=== PATIENT | male | born 1945 | race Caucasian/White ===

== ENCOUNTER 2021-03-17 09:11 | Emergency (ER) | payer MEDICARE, OTHER ==
[2021-03-17] MEDS ORDERED: fentaNYL 100 MCG/2 ML SDV IVPUSH ONE (09:33)
--- NOTE | 2021-03-17 10:11 | CR ---
CHEST: Portable 03/17/2021 at 9:51 AM CLINICAL HISTORY:Chest pain COMPARISON:None FINDINGS: Heart size is mildly enlarged. Pulmonary vascularity is normal. No infiltrate or effusion is seen. Patient has a permanent cardiac pacer. There are atherosclerotic changes in the aorta. Impression: Mild cardiomegaly Permanent cardiac pacer No acute cardiopulmonary process.
--- NOTE | 2021-03-17 10:13 | EDM.PDOC ---
ED HPI GENERAL MEDICAL PROBLEM - General Chief Complaint: Chest Pain Stated Complaint: POSSIBLE HEARTACHE Time Seen by Provider: 03/17/21 09:33 Source of Information: Reports: Patient History Limitations: Reports: No Limitations - History of Present Illness INITIAL COMMENTS - FREE TEXT/NARRATIVE: Refugio is a 75-year-old male presenting to the ED for evaluation of acute onset of chest pain that started around 5 AM this morning. The patient has a history of ventricular bigeminy and has an upcoming appointment with roll slicing machine tender to do an ablation at [facility] in [place]. He has an implantable pacemaker. He has a history for coronary disease status post stent placement, carotid vascular disease status post endarterectomy, and circular bigeminy status post pacemaker and upcoming ablation, obstructive sleep apnea uses a CPAP at night, hypertension, and status post arthroplasty of the knee. [place] but normally receives his health care in [place]. He has never been here before nor do we have records of him accessible. Chest Pain Score (Numeric/FACES): 8 - Related Data Allergies Allergy/AdvReac Type Severity Reaction Status Date / Time No Known Allergies Allergy Verified 03/17/21 09:29 Home Meds: Home Meds Apixaban [Eliquis] 5 mg PO BID 03/17/21 [History] Clopidogrel [Plavix] 75 mg PO DAILY 03/17/21 [History] DULoxetine [Cymbalta] 60 mg PO DAILY 03/17/21 [History] Dextroamphetamine/Amphetamine [Adderall] 15 mg PO BID 03/17/21 [History] Metoprolol Tartrate [Lopressor] 50 mg PO BID 03/17/21 [History] Nitroglycerin 0.4 mg SL ASDIRECTED PRN 03/17/21 [History] amLODIPine [Norvasc] 10 mg PO DAILY 03/17/21 [History] cloNIDine [Catapres] 0.2 mg PO BID 03/17/21 [History] Past Medical History HEENT History: Reports: Cataract Cardiovascular History: Reports: High Cholesterol, Hypertension, [place], Pacemaker, Other (See Below) Other Cardiovascular History: Freq PVC's Respiratory History: Reports: Sleep Apnea Other Respiratory History: c-pap Gastrointestinal History: Reports: Diverticulosis Genitourinary History: Reports: None Neurological History: Reports: None Psychiatric History: Reports: Depression, Suicidal Ideation Endocrine/Metabolic History: Reports: None Hematologic History: Reports: None Immunologic History: Reports: None Oncologic (Cancer) History: Reports: None Dermatologic History: Reports: None - Infectious Disease History Infectious Disease History: Reports: Chicken Pox, Measles, Mumps - Past Surgical History HEENT Surgical History: Reports: Cataract Surgery, Other (See Below) Other HEENT Surgeries/Procedures: nasal polyp Cardiovascular Surgical History: Reports: Carotid Endarterectomy, Coronary Artery Stent, Pacer GI Surgical History: Reports: Colonoscopy Musculoskeletal Surgical History: Reports: Knee Replacement Social & Family History - Tobacco Use Tobacco Use Status *Q: Former Tobacco User Used Tobacco, but Quit: Yes Month/Year Tobacco Last Used: 43 years - Caffeine Use Caffeine Use: Reports: Coffee Caffeine Use Comment: - Recreational Drug Use Recreational Drug Use: No ED ROS GENERAL - Review of Systems Review Of Systems: See Below Constitutional: Denies: Fever, Chills HEENT: Reports: No Symptoms Respiratory: Reports: Shortness of Breath. Denies: Cough Cardiovascular: Reports: Chest Pain (Central chest pain that worsens with i nspiration.), Palpitations (Patient is in ventricular bigeminy and occasionally has short runs of ventricular tachycardia.) Endocrine: Reports: No Symptoms GI/Abdominal: Reports: No Symptoms : Reports: No Symptoms Musculoskeletal: Reports: Back Pain Skin: Reports: No Symptoms Neurological: Reports: No Symptoms Psychiatric: Reports: Anxiety Hematologic/Lymphatic: Reports: No Symptoms Immunologic: Reports: No Symptoms ED EXAM, GENERAL - Physical Exam Exam: See Below Exam Limited By: No Limitations General Appearance: Alert, Anxious, Mild Distress Eye Exam: Bilateral Eye: EOMI, PERRL Throat/Mouth: Normal Inspection, Normal Oropharynx, Normal Voice, No Airway Compromise Head: Atraumatic, Normocephalic Neck: Normal Inspection, Supple, Non-Tender, Full Range of Motion. No: Lymphadenopathy (R), Lymphadenopathy (L) Respiratory/Chest: No Respiratory Distress, Lungs Clear, Normal Breath Sounds. No: Crackles, Rales, Rhonchi, Wheezing Cardiovascular: Normal Peripheral Pulses, No Murmur, Extra Beats Peripheral Pulses: 2+: Radial (L), Radial (R), Posterior Tibial (L), Posterior Tibial (R) GI/Abdominal: Normal Bowel Sounds, Soft, Non-Tender Back Exam: Normal Inspection, Full Range of Motion Extremities: Normal Inspection, Normal Range of Motion Neurological: Alert, Oriented, Normal Cognition, No Motor/Sensory Deficits Psychiatric: Normal Affect, Anxious Skin Exam: Warm, Dry, Intact, Normal Color Lymphatic: No Adenopathy #1 Interpretation EKG Date: 03/17/21 Time: 09:12 Rhythm: NSR (Normal sinus rhythm with ventricular bigeminy. There is a short polymorphic 4 beat run of V. tach.) [place]: LAD-Left [place] Deviation P-Wave: Present QRS: Normal ST-T: Other (Nonspecific ST-T changes) QT: Prolonged (QTC is 516 ms) Comparison: NA - No Prior EKG Course - Vital Signs Last Recorded V/S: Last Vital Signs Temp 36.1 C 03/17/21 09:21 Pulse 60 03/17/21 13:06 Resp 19 03/17/21 13:06 BP 118/82 03/17/21 13:06 Pulse Ox 96 03/17/21 13:06 - Orders/Labs/Meds Orders: Active Orders 24 hr Category Date Time Status Iopamidol [Isovue-370 (76%)] Med 03/17/21 11:30 Active 85 ml IV . DIRECTED Magnesium Sulfate/Water [Magnesium Sulfate in Water 2 Med 03/17/21 12:50 Active GM/50 ML] 2 gm Premix Bag 1 bag IV ONETIME Sodium Chloride 0.9% [Normal Saline] 1,000 ml Med 03/17/21 12:45 Active IV ASDIRECTED Sodium Chloride 0.9% [Saline Flush] Med 03/17/21 09:12 Active 10 ml FLUSH ASDIRECTED PRN Saline Lock Insert [OM.PC] Routine Oth 03/17/21 09:12 Ordered EKG 12 Lead [EK] Routine Ther 03/17/21 09:12 Ordered Medication Orders Sodium Chloride (Normal Saline) 1,000 mls @ 999 mls/hr IV ASDIRECTED CHRIS Last Admin: 03/17/21 12:49 Dose: 999 mls/hr Documented by: LISE Magnesium Sulfate 2 gm/ Premix 50 mls @ 25 mls/hr IV ONETIME ONE Stop: 03/17/21 14:49 Last Admin: 03/17/21 12:57 Dose: 25 mls/hr Documented by: LISE Iopamidol (Iopamidol 755 Mg/Ml 100 Ml Bottle) 85 ml IV . DIRECTED CHRIS Last Admin: 03/17/21 11:28 Dose: 85 ml Documented by: ALEUXS Sodium Chloride (Sodium Chloride 0.9% 10 Ml Syringe) 10 ml FLUSH ASDIRECTED PRN PRN Reason: Keep Vein Open Last Admin: 03/17/21 12:49 Dose: 10 ml Documented by: Admin: 03/17/21 11:29 Dose: 10 ml Documented by: Admin: 03/17/21 10:25 Dose: 10 ml Documented by: PREILOR Labs: Laboratory Tests 03/17/21 03/17/21 03/17/21 Range/Units 08:55 09:18 09:22 WBC 15.9 H (4.5-11.0) K/uL RBC 4.69 (4.30-5.90) M/uL Hgb 14.0 (12.0-15.0) g/dL Hct 41.5 (40.0-54.0) % MCV 89 (80-98) fL MCH 30 (27-31) pg MCHC 34 (32-36) % Plt Count 179 (150-400) K/uL Neut % (Auto) 73.9 H (36-66) % Lymph % (Auto) 13.3 L (24-44) % [place] % (Auto) 7.4 H (2-6) % Eos % (Auto) 5.0 H (2-4) % Baso % (Auto) 0.4 (0-1) % PT (9.5-12.0) sec INR (0.80-1.20) APTT (27.0-36.0) sec D-Dimer, Quantitative 804.41 H (0.0-500.0) ng/mL Sodium (140-148) mmol/L Potassium (3.6-5.2) mmol/L Chloride (100-108) mmol/L Carbon Dioxide (21-32) mmol/L Anion Gap (5.0-14.0) mmol/L BUN (7-18) mg/dL Creatinine (0.8-1.3) mg/dL Est Cr Clr Drug Dosing Estimated GFR (MDRD) (>60) Glucose (74-106) mg/dL Calcium (8.5-10.1) mg/dL Magnesium 1.7 L (1.8-2.4) mg/dL Total Bilirubin (0.2-1.0) mg/dL AST (15-37) U/L ALT (12-78) U/L Alkaline Phosphatase (46-116) U/L Troponin I (0.000-0.056) ng/mL Total Protein (6.4-8.2) g/dL Albumin (3.4-5.0) g/dL Globulin (2.3-3.5) g/dL Albumin/Globulin Ratio (1.2-2.2) SARS CoV-2 RNA Rapid DANAY 03/17/21 03/17/21 03/17/21 Range/Units 09:22 09:22 10:16 WBC (4.5-11.0) K/uL RBC (4.30-5.90) M/uL Hgb (12.0-15.0) g/dL Hct (40.0-54.0) % MCV (80-98) fL MCH (27-31) pg MCHC (32-36) % Plt Count (150-400) K/uL Neut % (Auto) (36-66) % Lymph % (Auto) (24-44) % [place] % (Auto) (2-6) % Eos % (Auto) (2-4) % Baso % (Auto) (0-1) % PT 10.7 (9.5-12.0) sec INR 0.98 (0.80-1.20) APTT 26.3 L (27.0-36.0) sec D-Dimer, Quantitative (0.0-500.0) ng/mL Sodium 135 L (140-148) mmol/L Potassium 4.7 (3.6-5.2) mmol/L Chloride 103 (100-108) mmol/L Carbon Dioxide 26 (21-32) mmol/L Anion Gap 10.7 (5.0-14.0) mmol/L BUN 36 H (7-18) mg/dL Creatinine 1.8 H (0.8-1.3) mg/dL Est Cr Clr Drug Dosing TNP Estimated GFR (MDRD) 37 L (>60) Glucose 134 H (74-106) mg/dL Calcium 9.1 (8.5-10.1) mg/dL Magnesium (1.8-2.4) mg/dL Total Bilirubin 0.4 (0.2-1.0) mg/dL AST 19 (15-37) U/L ALT 18 (12-78) U/L Alkaline Phosphatase 57 (46-116) U/L Troponin I < 0.017 (0.000-0.056) ng/mL Total Protein 6.9 (6.4-8.2) g/dL Albumin 3.4 (3.4-5.0) g/dL Globulin 3.5 (2.3-3.5) g/dL Albumin/Globulin Ratio 1.0 L (1.2-2.2) SARS CoV-2 RNA Rapid DANAY Negative Meds: Medications Generic Name Dose Route Start Last Admin Trade Name Lissy PRN Reason Stop Dose Admin Sodium Chloride 1,000 mls @ 999 mls/hr 03/17/21 12:45 03/17/21 12:49 Normal Saline IV 999 mls/hr ASDIRECTED CHRIS Administration Magnesium Sulfate 2 gm/ Premix 50 mls @ 25 mls/hr 03/17/21 12:50 03/17/21 12:57 IV 03/17/21 14:49 25 mls/hr ONETIME ONE Administration Iopamidol 85 ml 03/17/21 11:30 03/17/21 11:28 Iopamidol 755 Mg/Ml 100 Ml Bottle IV 85 ml . DIRECTED CHRIS Administration Sodium Chloride 10 ml 03/17/21 09:12 03/17/21 12:49 Sodium Chloride 0.9% 10 Ml Syringe FLUSH 10 ml ASDIRECTED PRN Administration Keep Vein Open Discontinued Medications Generic Name Dose Route Start Last Admin Trade Name Lissy PRN Reason Stop Dose Admin Fentanyl 100 mcg 03/17/21 09:33 03/17/21 09:56 Fentanyl 100 Mcg/2 Ml Sdv IVPUSH 03/17/21 09:34 100 mcg ONETIME ONE Administration Sodium Chloride 90 mls @ 3 mls/sec 03/17/21 11:21 03/17/21 11:29 Normal Saline IV 03/17/21 11:22 3 mls/sec ONETIME ONE Administration Magnesium Sulfate 2 gm/ Premix 50 mls @ 25 mls/hr 03/17/21 12:49 03/17/21 12:58 IV 03/17/21 14:48 Not Given ONETIME ONE Sodium Chloride 10 ml 03/17/21 11:21 03/17/21 12:50 Sodium Chloride 0.9% 10 Ml Sdv FLUSH 03/17/21 11:22 10 ml ONETIME ONE Administration - Radiology Interpretation Free Text/Narrative:: I reviewed the images of the CT angiogram of the chest as well as the report. There is no evidence for acute pulmonary emboli. There is some groundglass appearance in bibasilar lungs more likely due to dependent edema less likely due to an acute pneumonitis. The patient is Covid negative so it is unlikely that this is Covid lung. - Re-Assessments/Exams Free Text/Narrative Re-Assessment/Exam: 03/17/21 12:40 reviewed the patient's labs showing a leukocytosis of 15.9 with a 73% neutrophils and 13% lymphocyte differential. His hemoglobin is 14.0 with a hematocrit of 41.5 and platelet count of 179,000. His comprehensive metabolic panel is unremarkable except for a BUN of 36 with a creatinine of 1.8. His magnesium is a little low at 1.7 so we will subsidize that with gram of magnesium sulfate. His PT is 10.7 with an INR of 0.98. His PTT is 26.3. His D-dimer is markedly elevated at 804.41 and his troponin is less than 0.017. As his symptoms started at 0400 hrs., it is unlikely that this is pain arising from the heart with a normal troponin. The patient does have ventricular bigeminy and has had at least 1 short run of ventricular tachycardia which was polymorphic. He is scheduled to undergo a ventricular ablation for his bigeminy to be done at [facility] in [place]. A CT angiogram of the chest was unremarkable for any evidence for pulmonary emboli but did show some bilateral basilar dependent edema in the lungs. Because of the renal dysfunction we will hydrate him well to prevent any dye induced renal failure. 03/17/21 13:57 reviewing everything, it is possible that his chest and neck pain is more due to musculoskeletal source than cardiac or pulmonary. He has had significantly less ectopy since giving him the magnesium. I encouraged him to continue to drink fluids throughout the day to help keep the kidneys flushed. After the magnesium infusion is done, I believe the patient is suitable for discharge in satisfactory condition. Indications return to the ED were discussed and all questions were answered prior to discharge. Departure - Departure Time of Disposition: 14:28 Disposition: Home, Self-Care 01 Clinical Impression: Nonspecific chest pain, Ventricular bigeminy, Ventricular tachycardia by electrocardiogram Instructions: Nonspecific Chest Pain, Adult Referrals: PCP,None [Primary Care Provider] - Forms: ED Department Discharge Care Plan Goals: Your work-up today has shown that you have a low magnesium which may be contributing to your ventricular bigeminy and your brief runs of ventricular tachycardia. We have repleted your magnesium with an IV infusion. Your elevated D-dimer was not associated with pulmonary emboli as your CT angiogram of the chest was negative for any blood clots. It did show some dependent edema in the lung bases. Continue to push fluids throughout the next day or so to keep flushing the kidneys of the contrast dye. Follow-up with your health professional concerning the ventricular bigeminy and her upcoming ablation. Good luck with that procedure. Return to the ED should you have any additional issues. Sepsis Event Note (ED) - Focused Exam Vital Signs: Vital Signs Temp Pulse Resp BP Pulse Ox 03/17/21 13:06 60 19 118/82 96 03/17/21 11:30 48 L 18 128/86 98 03/17/21 10:31 47 L 16 154/75 H 97 03/17/21 10:05 47 L 14 159/71 H 97 03/17/21 09:50 54 L 14 122/60 99 03/17/21 09:35 58 L 16 145/71 H 98 03/17/21 09:21 36.1 C 46 L 16 149/72 H 99 - Problem List & Annotations (1) Nonspecific chest pain SNOMED Code(s): 62093918 Code(s): R07.9 - CHEST PAIN, UNSPECIFIED Status: Acute Priority: High Current Visit: Yes (2) Ventricular bigeminy SNOMED Code(s): 56277539 Code(s): I49.8 - OTHER SPECIFIED CARDIAC ARRHYTHMIAS Status: Acute Priority: High Current Visit: Yes (3) Ventricular tachycardia by electrocardiogram SNOMED Code(s): 933691925 Code(s): I47.2 - VENTRICULAR TACHYCARDIA Status: Acute Priority: High Current Visit: Yes - Problem List Review Problem List Initiated/Reviewed/Updated: Yes - My Orders Last 24 Hours: My Active Orders 03/17/21 09:12 Sodium Chloride 0.9% [Saline Flush] 10 ml FLUSH ASDIRECTED PRN Saline Lock Insert [OM.PC] Routine EKG 12 Lead [EK] Routine 03/17/21 11:30 Iopamidol [Isovue-370 (76%)] 85 ml IV . DIRECTED 03/17/21 12:45 Sodium Chloride 0.9% [Normal Saline] 1,000 ml IV ASDIRECTED 03/17/21 12:50 Magnesium Sulfate/Water [Magnesium Sulfate in Water 2 GM/50 ML] 2 gm Premix Bag 1 bag IV ONETIME - Assessment/Plan Last 24 Hours: My Active Orders 03/17/21 09:12 Sodium Chloride 0.9% [Saline Flush] 10 ml FLUSH ASDIRECTED PRN Saline Lock Insert [OM.PC] Routine EKG 12 Lead [EK] Routine 03/17/21 11:30 Iopamidol [Isovue-370 (76%)] 85 ml IV . DIRECTED 03/17/21 12:45 Sodium Chloride 0.9% [Normal Saline] 1,000 ml IV ASDIRECTED 03/17/21 12:50 Magnesium Sulfate/Water [Magnesium Sulfate in Water 2 GM/50 ML] 2 gm Premix Bag 1 bag IV ONETIME
[2021-03-17] MEDS: Sodium Chloride 0.9% 10 ML Syringe FLUSH PRN ×3 (10:25→12:49)
[2021-03-17] MEDS ORDERED: Sodium Chloride 0.9% 10 ML SDV FLUSH ONE (11:21)
[2021-03-17] MEDS ORDERED: Sodium Chloride 0.9% 90 ML IV ONE (11:21)
[2021-03-17] MEDS ORDERED: Iopamidol 755 Mg/ML 100 ML Bottle IV SCH (11:30)
--- NOTE | 2021-03-17 11:48 | CT ---
Ang Chest CLINICAL HISTORY: Chest pain, elevated d-dimer TECHNIQUE: Thin section axial contiguous tomographic sections were taken through the chest after bolus IV iodinated contrast administration. Coronal and sagittal images were reconstructed. Auto dosage reduction and iterative reconstruction techniques employed. FINDINGS: There is some patchy groundglass opacification dominantly within the dependent portions of the lung davis. This may represent some dependent edema. Pneumonitis is felt less likely. No pulmonary mass is identified. There are atherosclerotic changes in the aorta.. No mediastinal mass or suspicious lymphadenopathy is seen. There are no pleural effusions. There are no filling defects in the pulmonary arteries. Aorta is free of aneurysm. IMPRESSION: No evidence of pulmonary embolus There are some patchy groundglass opacifications in the dependent portions of the lung. This is more likely related to some dependent edema. Pneumonitis is felt less likely
[2021-03-17] MEDS ORDERED: Sodium Chloride 0.9% 1,000 ML IV SCH (12:45)
[2021-03-17] MEDS ORDERED: Magnesium Sulfate/Water 2 GM in Premix Bag 1 BAG IV ONE ×2 (12:49→12:50)
== END 2021-03-17 15:05 | disposition home or self-care (01) ==
LOC: JP.ED 09:11
DX: R07.9 Chest pain, unspecified (principal); R00.8 Other abnormalities of heart beat; R00.0 Tachycardia, unspecified; I10 Essential (primary) hypertension; I25.2 Old myocardial infarction; I25.10 Atherosclerotic heart disease of native coronary artery without angina pectoris; Z95.5 Presence of coronary angioplasty implant and graft; Z87.891 Personal history of nicotine dependence; Z79.01 Long term (current) use of anticoagulants; Z79.02 Long term (current) use of antithrombotics/antiplatelets; Z79.899 Other long term (current) drug therapy; Z20.822 Contact with and (suspected) exposure to COVID-19
CPT/HCPCS: 36415; 71045; 71275; 80053; 83735; 84484; 85025; 85379; 85610; 85730; 93005; 96365; 96366; 96375; 99285; J3010; J3475; J7030; Q9967; U0002